=== PATIENT | female | born 1975 | race Caucasian/White ===

== ENCOUNTER 2021-03-25 22:17 | Emergency (ER) | payer OTHER ==
[~2021-03-25] VITALS: Ht 162.6 cm; Wt 55.8 kg
[2021-03-26] MEDS ORDERED: CIPRO500 MG (00:46)
[2021-03-26] MEDS ORDERED: ZOFRAN4 MG PO (02:29)
== END 2021-03-26 02:38 | disposition home or self-care (01) ==
LOC: ED 22:17
DX: R10.9 Unspecified abdominal pain (principal); Z87.440 Personal history of urinary (tract) infections
CPT/HCPCS: 99283; A9270